=== PATIENT | male | born 1970 | race Caucasian/White ===

== ENCOUNTER 2025-02-06 13:44 | Emergency (ER) | payer MEDICAID, SELFPAY ==
--- NOTE | 2025-02-06 | ECG_ITS ---
Test Reason : SYNCOPE Blood Pressure : */* mmHG Vent. Rate : 48 BPM Atrial Rate : 48 BPM P-R Int : 148 ms QRS Dur : 76 ms QT Int : 446 ms P-R-T Axes : 47 8 2 degrees QTcB Int : 398 ms Sinus bradycardia Minimal voltage criteria for LVH, may be normal variant ( R in aVL ) Nonspecific T wave abnormality Abnormal ECG When compared with ECG of 02-Apr-2016 14:32, Nonspecific T wave abnormality now evident in Anterolateral leads Referred By: Generic ED Physician Electronically Signed By: PARIS CAMPBELL
--- NOTE | ~2025-02-06 | CT_ITS ---
EXAMINATION: CT HEAD WITHOUT CONTRAST CLINICAL INFORMATION: Head strike, trauma. COMPARISON: None available. TECHNIQUE: Contiguous axial imaging was performed from the skull base to vertex without intravenous administration of contrast. This CT examination was performed using dose optimization techniques as appropriate, variously including the following: *Automated exposure control *Adjustment of mA and/or kV according to patient size (this includes techniques or standardized protocols for targeted exams where dose is matched to indication/reason for exam; i.e. extremities or head) *Use of iterative reconstruction technique FINDINGS: There is no evidence of intracranial hemorrhage or extra-axial fluid collection. There is no mass effect, or edema. No CT evidence of acute territorial infarct. Ventricles, sulci, and cisterns are normal in size and configuration for patient age. No hydrocephalus. No midline shift. Negative hyperdense MCA sign. Negative insular ribbon sign. Patchy periventricular and deep white matter hypoattenuation is consistent with mild to moderate small vessel ischemic changes. Normal pituitary. Mild atheromatous calcification of the bilateral carotid siphons and V4 segments vertebral arteries bilaterally. Globes and orbital contents image normally. No extracranial soft tissue abnormalities. The paranasal sinuses, mastoid air cells, and tympanic cavities are normally aerated. No suspicious bony abnormalities. There are no acute fractures evident. There is plagiocephaly. CT/CT head/brain wo IV con IMPRESSION: No acute intracranial abnormality. No fracture evident. Electronically signed by: Manuel Washington MD 02/06/2025 04:39 PM EDT
--- NOTE | ~2025-02-06 | CT_ITS ---
EXAMINATION: CT CERVICAL SPINE WITHOUT CONTRAST CLINICAL INFORMATION: Syncope with head trauma, lethargic COMPARISON: None available. TECHNIQUE: Axial imaging was performed from the base of the skull through T2 without IV contrast. Coronal and sagittal reformatted images were generated from the original axial data set. ALARA: The examination used one or more of the following radiation dose reduction techniques: Automated exposure control, iterative reconstruction, and/or adjustment of mA and/or KV. DLP: 995 mGY*cm FINDINGS: There is straightening of cervical lordosis. There is mild to moderate disc space narrowing in the mid and lower thoracic spine. There is no prevertebral soft tissue edema. No fracture lines are identified. CT/CT cervical spine wo IV con IMPRESSION: No acute fracture. Mild degenerative changes and straightening of cervical lordosis. Electronically signed by: Forrest Juárez MD 02/06/2025 04:38 PM EDT
[2025-02-06 13:50] VITALS: BP 87/55; BP 98/56; PULSE 58; PULSE 60; RESP 18; TEMP 36.4; O2SAT 92; O2SAT 94; BMI 26.8
--- NOTE | 2025-02-06 14:12 | PC.NURSE ---
Dr. Spivey at bedside attempting IV access with ultrasound. 20g IV access established to hand by aTmmy Manzano RN. Pt is hypotensive, confused, unwitnessed fall. Plan for labs & further evaluation to rule out injuries. +LOC, +thinners (doesn't recall name of medication, but reports not taking meds for 1 week). Care ongoing by this RN.
[2025-02-06 14:17] LABS: MANUAL DIFF FLAG NO
[2025-02-06 14:20] LABS: Hematocrit 41.3 % (42.0-52.0); Hemoglobin 13.6 g/dl (14.0-18.0); Imm Gran Abs Auto 0.02 X10*3/uL (0.00-0.03); Imm Gran Pct Auto 0.2 % (0.0-0.4); Lymphocytes Absolute Auto 2.0 X10*3/uL (1.2-4.9); Mean Corpuscular HGB Conc 32.9 g/dl (31.0-36.0); Mean Corpuscular Hemoglobin 29.2 pg (27.0-33.0); Mean Corpuscular Volume 88.6 fL (80.0-98.0); NRBC Abs Auto 0.000 X10*3/uL (0.0-0.012); NRBC Pct Auto 0.0 /100WBC (0.0-0.2); Platelet Count 232 X10*3/uL (160-400); Red Blood Count 4.66 X10*6/uL (4.60-5.80); White Blood Count 9.1 X10*3/uL (4.8-10.8)
--- NOTE | 2025-02-06 14:21 | ED_ITS ---
HPI - Syncope General Chief Complaint: Syncope Stated Complaint: SYNCOPAL EPISODE Time Seen by Provider: 02/06/25 14:04 Source: patient and EMS Mode of arrival: EMS Limitations: other (Patient is lethargic) History of Present Illness ED Provider: HPI narrative: 54-year-old male, quite a bit Lethargic [place] was able to arouse him to obtain history but he is clearly over medicated, told me he passed out go into a methadone clinic in takes 100 mg of methadone, denies ongoing drug use, he is on blood thinners but sounds like he does not take them on regular basis, states he passed out, no reports of loss of bowel or bladder function he has abrasion to his forehead. Related Data Allergies Allergy/AdvReac Type Severity Reaction Status Date / Time ibuprofen (From Motrin) Allergy Mild FACIAL Verified 02/06/25 13:52 SWELLING latex (Latex) Allergy Mild RASH Verified 02/06/25 13:52 tramadol Allergy Unknown Unknown Verified 02/06/25 13:52 Review of Systems 2 Review of Systems: Yes Unobtainable due to mental status Neurologic: Reports confusion Psychiatric: Psychiatric: Reports confusion PMFSH Social History Social History Advance Directives: No Advance Directives Information Provided: No Do you have a plan to hurt others: No Plan Physical Exam 2 Vital Signs: Vital Signs: Last Vital Signs Temp 97.6 F 02/06/25 13:50 Pulse 60 02/06/25 13:50 Resp 18 02/06/25 13:50 BP 87/55 L 02/06/25 13:50 Pulse Ox 94 02/06/25 13:50 O2 Del Method Nasal Cannula 02/06/25 13:50 Oxygen Flow Rate 2 02/06/25 13:50 BMI result Body Mass Index 26.8 Const: General: confusion, intoxicated appearing and lethargic Nutritional Appearance: average body habitus Orientation/consciousness: oriented to place, No patient oriented x3, confusion and lethargic HEENT: Head: No atraumatic, Yes abrasion, No hematoma, No laceration, No palpable skull fracture, No raccoon eyes and No periorbital ecchymosis Head images: 1. abrasion Ears: external ears normal Face and sinus: Yes normal facial exam and No laceration Mouth: oropharynx normal, mucous membranes dry and No mouth trauma Teeth and gingiva: dentition normal Neck: Other: Cervical collar in place Chest: Chest palpation & inspection: normal inspection of the chest and normal palpation of entire chest wall Cardio: Heart sounds: S1 normal heart sound present, S2 normal heart sound present and no murmurs Back/Spine/Pelvis: Other: Pelvis is stable, full range of motion bilateral upper and lower extremities at the hips, knees, ankles, shoulders elbows wrists Skin: Other: Forehead abrasion Neuro: Other: Patient oriented to self, location at the same time he is lethargic and confused around what happened falls asleep if you stop talking to him General: oriented to place, No patient oriented x3 and confusion Cranial nerves: Yes CN's II-XII intact bilaterally Medications Administered Discontinued Medications Generic Name Dose Route Start Last Admin Trade Name Freq PRN Reason Stop Dose Admin Sodium Chloride 1,000 mls @ 999 mls/hr 02/06/25 14:15 02/06/25 15:20 Ns IV 02/06/25 15:15 Infused .Q1H1M URIAH Infusion Sodium Chloride 1,000 mls @ 999 mls/hr 02/06/25 14:30 02/06/25 15:32 Ns IV 02/06/25 15:30 Infused .Q1H1M URIAH Infusion Naloxone HCl 0.1 mg 02/06/25 14:36 02/06/25 14:46 Naloxone Hcl 0.4 Mg/Ml Vial IVPUSH 02/06/25 14:37 0.1 mg STAT STA Administration Medical Decision Making Medical Decision Making [facility] Narrative: Patient presenting with syncope with differential as below, bedside ultrasound without pericardial effusion, he has good cardiac squeeze, he is quite over medicated whether this is from methadone and dehydration or substance use disorder though he denies it, IV access obtained to the right basilic vein by physician, he is getting 2 L of fluids pressurized, we will obtain imaging of the head and neck, blood work ECG, we will monitor response to fluids, slight reversal with a minute amount of naloxone. 17:13 patient is improving as far as mentation, has been ambulating and blood pressure improved. Family is here to pick him up, and I spoke to the patient, he did endorse that 3 days ago he relapsed and took some pills and fentanyl Differential Diagnosis Differential Diagnoses: The differential diagnosis associated with the presentation includes (ACS, PE, dysrhythmia, anemia, cardiac tamponade, , vasovagal syncope, orthostatic syncope, medication induced syncope, see above) Lab Data 02/06/25 14:08 02/06/25 14:08 Labs: Lab Results 02/06/25 02/06/25 Range/Units 14:08 15:50 WBC 9.1 (4.8-10.8) X10*3/uL RBC 4.66 (4.60-5.80) X10*6/uL Hgb 13.6 L (14.0-18.0) g/dl Hct 41.3 L (42.0-52.0) % MCV 88.6 (80.0-98.0) fL MCH 29.2 (27.0-33.0) pg MCHC 32.9 (31.0-36.0) g/dl RDW 13.7 (11.0-16.0) % Plt Count 232 (160-400) X10*3/uL MPV 10.3 (9.4-12.4) fL Immature Gran % (Auto) 0.2 (0.0-0.4) % Neut % (Auto) 65.1 (45-73) % Lymph % (Auto) 22.0 (20-40) % [place] % (Auto) 8.1 (2-11) % Eos % (Auto) 3.6 (0-4) % Baso % (Auto) 1.0 (0-2) % Lymph # (Auto) 2.0 (1.2-4.9) X10*3/uL [place] # (Auto) 0.7 (0.1-1.2) X10*3/uL Eos # (Auto) 0.3 (0.0-0.4) X10*3/uL Baso # (Auto) 0.1 (0.0-0.2) X10*3/uL Abs Immat Gran (auto) 0.02 (0.00-0.03) X10*3/uL Absolute Neuts (auto) 5.9 (2.0-8.3) x10*3/uL Absolute Nucleated RBC 0.000 (0.0-0.012) X10*3/uL Nucleated RBC % (auto) 0.0 (0.0-0.2) /100WBC PT 11.5 (10.9-12.4) SEC INR 1.0 (0.9-1.1) APTT 29.4 (26.7-34.1) SEC Sodium 137 (135-145) mmol/L Potassium 5.0 (3.3-5.1) mmol/L Chloride 105 (96-108) mmol/L Carbon Dioxide 23 (22-29) mmol/L Anion Gap 14 (12-20) BUN 17 H (9-16) mg/dL Creatinine 1.88 H (0.5-1.4) mg/dL Estim Creat Clear Calc 45.3 Estimated GFR 37 Random Glucose 81 (60-115) mg/dL Calcium 9.0 (8.4-10.2) mg/dL Magnesium 2.1 (1.6-2.6) mg/dL Total Bilirubin 0.3 (0.0-1.0) mg/dL AST 29 (5-37) U/L ALT 17 (0-40) U/L Alkaline Phosphatase 115 (39-117) U/L Troponin I High Sens < 2.7 (<3.5-35.0) ng/L Total Protein 7.5 (6.5-8.0) g/dL Albumin 4.0 (3.5-5.0) g/dL Urine Opiates Screen POSITIVE H (Not Detect) Ur Buprenorphine Scrn Not Detected (Not Detect) ng/mL Ur Oxycodone Screen Not Detected (Not Detect) ng/mL Urine Methadone Screen Positive H (Not Detect) ng/mL Urine Fentanyl Screen POSITIVE H (Not Detect) Ur Barbiturates Screen Not Detected (Not Detect) Ur Phencyclidine Scrn Not Detected (Not Detect) Ur Amphetamines Screen Not Detected (Not Detect) U Benzodiazepines Scrn POSITIVE H (Not Detect) Urine Cocaine Screen Not Detected (Not Detect) U Marijuana (THC) Screen Not Detected (Not Detect) Independent Interpretation I performed an independent interpretation of an: EKG (Forty-eight sinus bradycardia, LVH, no ACS no dysrhythmia, no QTC prolongation) Radiology Impression Discussion of test interpretation with radiology: I have reviewed the radiologist's reading. (No acute injuries) Procedures Ultrasound ED POC Ultrasound: EMERGENCY ULTRASOUND REPORT?Point of Care Cardiac (Echo-Focus), images I locally stored Emergent Cardiac for Indication: Views Used: Parasternal long, parasternal short, (IVC, 4 chamber views unable to visualize) Pericardial Effusion/Tamponade Findings: none Global LV Fxn: No RV strain, no pericardial effusion IVC Dilation and Resp Variation: Unable to visualize IVC Critical Care Time Critical Care Time Total Critical Care Time: 65 Attestation: Time is exclusive of separately billable procedures. Time includes: direct patient care, patient reassessment, coordination of patient care, interpretation of data (laboratory data, pulse oximetry, arterial blood gases and chest xrays), review of patient's medical records, medical consultation and documentation of patient care. Procedures excluded from critical care time: central intravenous line placement and electrocardiography. Discharge Plan Discharge Clinical Impression: Syncope due to orthostatic hypotension, WISAM (acute kidney injury), Overdose of medication, Polysubstance abuse Patient Disposition: Home, Self-Care Additional Instructions: You passed out due to low blood pressure and dehydration, I do not know your baseline kidney function but you likely have acute kidney injury from dehydration, your blood pressure increased quite a bit with IV fluids and I recommend that you stay aggressively hydrated throughout the day with water and Gatorade Get in touch with the PCP to discuss your medications that you have been missing but I would not take any medications for your blood pressure today You have abrasion on top of the head, keep it clean with soap and water bacitracin ointment, these typically do not get infected You had CAT scan of the brain and cervical spine, thankfully there was no injury to the neck or injury to your brain Referrals: [place],Count Includes [facility] [Primary Care Provider, Primary Care] - 1 week Print Language: Citizen Of [place]
[2025-02-06 14:28] LABS: INTERNATIONAL NORM RATIO 1.0 (0.9-1.1); Prothrombin Time 11.5 SEC (10.9-12.4)
[2025-02-06 14:30] LABS: Partial Thromboplastin Time 29.4 SEC (26.7-34.1)
[2025-02-06 14:33] VITALS: BP 97/38; PULSE 48; RESP 16; O2SAT 94
[2025-02-06 14:40] LABS: Troponin-I High Sensitivity < 2.7 ng/L (<3.5-35.0)
[2025-02-06 14:42] LABS: Alanine Aminotransferase 17 U/L (0-40); Albumin Level 4.0 g/dL (3.5-5.0); Alkaline Phosphatase 115 U/L (39-117); Anion Gap 14 (12-20); Aspartate Amino Transferase 29 U/L (5-37); Blood Urea Nitrogen 17 mg/dL (9-16); Calcium 9.0 mg/dL (8.4-10.2); Carbon Dioxide 23 mmol/L (22-29); Chloride 105 mmol/L (96-108); Creatinine Clr Calc Pharmacy 45.3; Estimated Glomerular Filt Rate 37; Magnesium 2.1 mg/dL (1.6-2.6); Potassium 5.0 mmol/L (3.3-5.1); Sodium 137 mmol/L (135-145); Total Protein 7.5 g/dL (6.5-8.0)
--- NOTE | 2025-02-06 15:22 | PC.NURSE ---
20g IV access from right bicep accidentally dislodged by the patient. 20g IV in right hand remains in place & functional. IV fluids continue to infuse as ordered. Patient is more alert/oriented at this time. Dr. Allyssa calhoun.
[2025-02-06 15:30] VITALS: BP 107/53; PULSE 48; RESP 16; O2SAT 95
--- NOTE | 2025-02-06 15:46 | PC.NURSE ---
Patient remains in c-collar, got himself out of bed unassisted. Patient is alert/oriented at this time. Refusing to sit in chair or bed. Insisting on ambulating to bathroom despite head injury, and initial arrival state. Patient's vitals have improved. IV fluid infusions have completed. Dr. Spivey aware. Urine specimen being collected. Pt aware that he is ambulating against medical advice.
--- OUTSIDE RECORDS SUMMARY | 2025-02-06 15:59 | XMS_ITS | Clinical Summary ---
Author Organization [facility] Address [address] [place] [address] Care Team Providers Care Ibm Mainframe Developer Name Role Phone Physician, No Pcp Primary Care Provider Unavaila ble Surgical History Surgery Date Site/Laterality Comments CHOLECYSTECTOMY PROCEDURE: HISTORICAL CHOLECYSTECTOMY VENTRAL HERNIA REPAIR PROCEDURE: HISTORICAL VTRL WALL HERNIA RE Medical History Medical History Date Comments Chronic hepatitis C (CMS/HCC V24, CMS/HCC V28) 03/30/2012 DX:Chronic hepatitis C (HCC) Hypothyroid 03/30/2012 DX:Hypothyroid Hidradenitis axillaris 12/23/2012 DX:Hidrad enitis axillaris Family History Relation Name Status Comments Brother 1 Alive Brother 2 Alive Father (Age 62) Renal fail ure on dialysis, history drug abuse Mother Alive healthy Sister 1 Alive Sister 2 Alive Sister 3 Alive Social History Tobacco Use Types Packs/Day Years Used Date Smoking Tobacco: Every Day Cigarettes Smokeless Tobacco: Never Alcohol Use Standard Drinks/Week Comments No 0 (1 standard drink = 0.6 oz pur e alcohol) Sex and Gender Information Value Date Recorded Sex Assigned at Not on file Legal Sex Male 11:36 PM EST Gender Identity Not on file Sexual Orientation Not on file Obstetrics History Plan of Treatment Health Maintenance Due Date Last Done Comments Hepatitis A Vaccines (1 of 2 - Risk 2-dose series) 1987 Hepatitis B Vaccines (1 of 3 - 19+ 3-dose series) 1987 Pneumococcal Vaccine: 50+ Ye ars (1 of 2 - PCV) 1987 Zoster Vaccines (1 of 2) 2018 Cholesterol Screening (Lipid Panel) 05/18/2022 Colorectal Cancer Screening: Colonoscopy 05/18/2022 HIV Screening 05/18/2022 Hepatitis C Screening 05/18/2022 Social Influencers of Health Screening 05/18/2022 Hypertension/CHF/CAD Annual BMP Blood Test 12/22/2023 DTaP,Tdap,and Td Vaccines (2 - Td or Tdap) 01/24/2024 01/23/2014 COVID-19 Vaccine (1 - 2023-2 5 season) 2024 Depression Screening 06/15/2024 Influenza Vaccine (#1) 2025 HIB Vaccines Aged Out No longer eligi ble based on patient's age to complete this topic HPV Vaccines Aged Out No longer eligi ble based on patient's age to complete this topic IPV Vaccines Aged Out No longer eligi ble based on patient's age to complete this topic MMR Vaccines Aged Out No longer eligi ble based on patient's age to complete this topic Meningococcal ACWY Vaccine Aged Out N o longer eligible based on patient's age to complete this topic Meningococcal B Vaccine Aged Out No l onger eligible based on patient's age to complete this topic RSV Immunization Patients Un jenise 20 months Aged Out No longer eligible b ased on patient's age to complete this topic Varicella Vaccines Aged Out No longer eligible based on patient's age to complete this topic Care Teams Ibm Mainframe Developer Relationship Specialty Start Date End Date Physician, No Pcp PCP - General 09/23/23
--- OUTSIDE RECORDS SUMMARY | 2025-02-06 15:59 | XMS_ITS | Clinical Summary ---
Author Organization [facility] Address [address] [place] [address] Care Team Providers Care Harness Installer Name Role Phone Unavailable Primary Care Provider Unavailabl e Encounters Date Type Department Care Team Description 01/03/2025 Population Health Risk Score [facility] (C[facility]) Department [address] [facility] [address] [place] [address] Provider, Population Health Generic from Last 3 Months Social History Tobacco Use Types Packs/Day Years Used Date Smoking Tobacco: Never Assessed Sex and Gender Information Value Date Recorded Sex Assigned at Not on file Legal Sex Male 9:18 PM EDT Gender Identity Not on file Sexual Orientation Not on file Plan of Treatment Health Maintenance Due Date Last Done Comments CT Colonography 1968 Colonoscopy 1968 Depression Screening 1968 FIT DNA/Cologuard 1968 FOBT 1968 Lipid Panel 1968 SDOH Screening 1968 Sigmoidoscopy 1968 Disability Screening 1968 Alcohol/Substance Use Screening 1980 Tobacco Screening 1980 Hepatitis B Vaccines (2 of 3 - 19+ 3-dose series) 04/04/2019 03/07/2019 Pneumococcal Vaccine: 50+ Years (2 of 2 - PCV) 03/07/2020 03/07/2019 Colorectal Cancer Screening 03/10/2022 FIT 03/10/2022 03/10/2021 Hepatitis A Vaccines (2 of 2 - Risk 2-dose series) 02/28/2023 08/28/2022 DTaP/Tdap/Td Vaccines (2 - Td or Tdap) 01/24/2024 01/23/2014 COVID-19 Vaccine ( season) 2024 03/25/2022, 05/23/2021, 08/18/2020, Additional history exists Influenza Vaccine (#1) 2025 05/29/2023, 2020 RSV Patients and Patients Aged 60 years or older (1 - 1-dose 75+ series) 2043 HIV Screening Completed 03/05/2021, 03/05/2021 Zoster Vaccines Completed 08/28/2022, 03/04/2021 HIB Vaccines Aged Out No longer eligi [...] patient's age to complete this topic Meningococcal Vaccine Aged Out No ryan bob eligible based on patient's age to complete this topic RSV under 20 months Aged Out No longe r eligible based on patient's age to complete this topic Rotavirus Vaccines Aged Out No longer eligible based on patient's age to complete this topic
[2025-02-06 16:08] LABS: Cannabinoid Screen Urine Not Detected (Not Detect)
[2025-02-06 17:41] VITALS: BP 131/73; PULSE 44; RESP 18; TEMP 36.6; O2SAT 97
== END 2025-02-06 17:41 | disposition home or self-care (01) ==
PROVIDERS: Emergency Provider Emergency Medicine; PCP Dentist General Practice
DX: I95.1 Orthostatic hypotension (principal); S00.81XA Abrasion of other part of head, initial encounter; T40.601A Poisoning by unspecified narcotics, accidental (unintentional), initial encounter; R11.0 Nausea; R40.4 Transient alteration of awareness; R00.1 Bradycardia, unspecified; R51.9 Headache, unspecified; M54.2 Cervicalgia; Y92.9 Unspecified place or not applicable; X58.XXXA Exposure to other specified factors, initial encounter; Y93.9 Activity, unspecified; Y99.8 Other external cause status; Z79.01 Long term (current) use of anticoagulants; Z79.899 Other long term (current) drug therapy; Z51.81 Encounter for therapeutic drug level monitoring
CPT/HCPCS: 36415; 70450; 72125; 80053; 80307; 83735; 84484; 85025; 85610; 85730; 93005; 96361; 96374; 99284; 99291; J2312

== ENCOUNTER → 2025-02-06 14:21 | Outpatient (BNV) | payer MEDICAID, SELFPAY | PROVIDERS: Emergency Provider Emergency Medicine; PCP Dentist General Practice; Visit Provider Radiology Diagnostic Radiology | DX: S09.90XA Unspecified injury of head, initial encounter (principal); R55 Syncope and collapse | CPT/HCPCS: 70450; 72125 ==

== ENCOUNTER → 2025-02-06 14:28 | Outpatient (BNV) | payer MEDICAID, SELFPAY | PROVIDERS: Emergency Provider Emergency Medicine; PCP Dentist General Practice; Visit Provider Internal Medicine | DX: R00.1 Bradycardia, unspecified (principal) | CPT/HCPCS: 93010 ==